=== PATIENT | female | born 1945 | race Caucasian/White ===

== ENCOUNTER 2019-09-24 16:23 | Outpatient (CLI) | payer MEDICARE, SELFPAY ==
--- NOTE | 2019-09-24 18:03 | ONC FU_ITS ---
Dr. Hutton Patient Follow-Up Note Patient: Beverley Sanchez Unit #: [id number]: 1945 Dicatated By: Giovanni Hutton M.D.Date of Visit:Sep 24, 2019 Onc Med Follow-up/Prog Note Chief Complaint: Gallbladder cancer. History of Present Illness: This is a 74 year-old woman with poorly differentiated adenocarcinoma of the gallbladder, initially stage IIIB (T2, N1, M0), but with subsequent progression to stage IV (M1). She was diagnosed with pathological T2 adenocarcinoma of the gallbladder as an incidental finding during laparoscopic cholecystectomy. On 03/11/2011 she underwent liver resection of segment 4 and 5 with portal lymphadenectomy. Surgical pathology revealed 08/15 involved lymph nodes. Thus, her disease was pathological stage IIIB (pT2, N1, M0). She received adjuvant gemcitabine for 3 cycles, requiring dose reductions. Her chemotherapy was complicated with MRSA cellulitis, sepsis, and grade 3 neutropenia requiring growth factor support. A Port-A-Cath was placed on 05/25/11, she then received a concurrent chemoradiation with infusional 5-FU, day 1-5 weekly during radiation, from 06/14/11 -07/21/11. Restaging imaging in October of 2011 showed no evidence of metastatic or recurrent disease. She had mild perigastric and proximal duodenal edema which was thought to be nonspecific and probably related to radiation. She declined additional gemcitabine. Screening colonoscopy on 05/04/[address] of the scans of the abdomen and pelvis on 05/24/2013 and on 06/20/2014 showed no evidence of recurrent gallbladder carcinoma or metastatic disease. In February 2015 she was reportedly diagnosed with well differentiated endometrial cancer, status post hysterectomy by Dr. Barnes. Those records have not been available. CT of the abdomen and pelvis on 01/09/15 showed new left lobe 5-6 mm pulmonary nodules. There was no evidence of metastatic disease in the abdomen or pelvis. Follow-up CT of the abdomen and pelvis on 06/20/2015 showed small marginal enlargement of the 2 left lower lobe pulmonary nodules up to 8.1 mm. She underwent lung wedge biopsy on 07/09/2015. The biopsy revealed well to moderately differentiated metastatic adenocarcinoma, consistent with gallbladder primary. IHC was positive for CD X2, CK 7, CK 20. She completed SBRT to the superior left lung on 09/05/2015, to the right lung on 09/15/2015, and 4 to the inferior left lung on 09/22/2015, each site to a total dose of [address] scans of the chest, abdomen, and pelvis on 10/20/2015 showed interval resection of the previous left lower lobe lateral segment nodule and unchanged lingular noncalcified 5 mm nodule. There was no evidence of disease progression in the chest, abdomen, or pelvis. Restaging CT scans of the chest, abdomen, and pelvis on 04/15/2016 showed postirradiation changes with evolving appearance since 01/20/2016, including the left upper lobe, lingula, and the right lung in the right middle lobe peribronchovascular distribution. There was no evidence of a neoplastic process in the chest. There was increasing diffuse fatty infiltration of the liver since 01/20/2016. There was no evidence of an hepatic metastatic lesion and no evidence of a neoplastic process in the remainder of the abdomen or pelvis. CT scans of the chest, abdomen, and pelvis on 07/20/2016 showed no evidence of recurrence/progression of disease. Her CT scans of the chest, abdomen, and pelvis on 07/06/2017 showed scattered opacities throughout both lungs which were felt to be probably post-therapeutic scarring and fibrosis. The appearance was stable. There was no evidence of new mass or nodules noted. There was no adenopathy noted in the thorax, and there was no evidence of other metastatic disease. Surveillance CT scans of the chest, abdomen, and pelvis on 01/16/2018 showed no evidence of recurrent or metastatic disease, but there was evidence of progression of the left hemidiaphragm elevation. At that point she appeared stable clinically, and she continued on observation/expectant management. For reasons unclear to me, she was then lost to follow-up. Her other medical illnesses include hypertension, asthma, GERD, and fibromyalgia. She is a nonsmoker. She has seen for follow-up today after she showed up with her requesting to have a visit. Her main complaint is that she has had increasing shortness of breath over the past 3 to 4 months. It bothers her when she lies down in bed, and she is frequently having to sleep sitting up because of it. She also is short of breath with activity. She has cough which is sometimes productive of white-yellow sputum. She has occasional pain in the substernal area. She has very limited activity tolerance. Her ECOG score is 2. Her appetite is still good. She thinks she has occasional fever at night. She has chills and sweating with it. She has no GI complaints. She has urinary frequency and nocturia. She has developed some swelling in the lower extremities. She says her knees hurt really bad. She also has pain in her ankles and in her shoulders and arms. She sometimes has headache, but not often. She has no focal neurologic symptoms. Medications: Atenolol 1 (50 mg) Tablet Oral daily, B Complex 1 Tablet Oral daily, Calcium + D 1 (600-200 mg - Units) Tablet Oral b.i.d., [employer] Fish Oil 1 (1200 mg) Capsule Oral b.i.d., Daily Multiple Vitamins 1 Tablet Oral daily, Fluticasone Furoate 2 (27.5 mcg/spray) Suspension Nasal daily, Klor-Con 1 (20 meq) Pack daily, Lasix 1 (40 mg) Tablet Oral daily, Magnesium Chloride ER (535 (64 Mg) mg) Tablet, controlled release Oral b.i.d., Myrbetriq 1 Tablet Tablet SR 24 HR Oral daily, Naproxen 1 (500 mg) Tablet Oral b.i.d. PRN, Omeprazole 1 (20 mg) Capsule Delayed Release Oral b.i.d., Percocet 1 (5-325 mg) Tablet Oral q 4 hours PRN, Savella 1 (12.5 mg) Tablet Oral b.i.d., SYMBACORT Aerosol Inhalation b.i.d. PRN Allergies: HYDROCODONE, Levaquin, and TRAMADOL. Review of Systems: Constitutional - Her energy is low. She has some activity restrictions related to her breathing. Her appetite is good and weight is down 10 pounds from last visit. She has felt feverish a few times along with sweating. ECOG score is 2, ENMT - She has sinus congestion/drainage. No mouth sores. No sore throat or difficulty swallowing, Hematologic/Lymphatic - No abnormal bruising or bleeding, Respiratory - She has been having shortness of breath for about 4 months. She reports this is worse when she lies down and with activity. She has a cough that occasional produces yellow phlegm. No pleuritic pain or hemoptysis, Cardiovascular - She has occasional substernal pain. This is also worsened by lying down. No palpitations, Gastrointestinal - No nausea or vomiting. No heartburn or acid reflux. No diarrhea or constipation. No blood in the stool or black stools, Genitourinary (F) - No dysuria or hematuria. She has urinary frequency both day and night. No urgency or incontinence, Musculoskeletal - She is having joint pain in her knees, ankles, and shoulders, Integumentary - She has some new skin lesions she is concerned about, Neurologic - She has occasional headaches. She has some dizziness when she lies down. No numbness or tingling. No other focal neurologic symptoms, Psychiatric - She has some anxiety. No depression. She is having difficulty sleeping. Vital Signs: Performed on Sep 24, 2019 16:34 Height - 65.00 in Weight - 182.4 lbs (LOW) BSA - 1.90 sq.m BMI - 30.35 (HIGH) Temperature - 97.6 F (LOW) Pulse - 80 /min Respiration - 19 /min BP - 135/70 mm(hg) O2 Sat - 92 % (LOW) Pain - 0 Her oxygen saturation dropped to 88% after walking just a short distance. She was symptomatic with it. Physical Examination: Constitutional - She appears short of breath with effort, Eyes - Sclerae nonicteric. Conjunctivae clear, ENMT - No lesions noted in the oral cavity, Hematologic/Lymphatic - No cervical or clavicular adenopathy, Respiratory - Lungs sound clear with diminished air movement bilaterally, Cardiovascular - Heart rhythm is regular. There is no murmur, gallop, or rub noted, Abdomen - Soft. Liver and spleen are not enlarged. There is no abdominal mass or ascites noted and there is no inguinal adenopathy, Extremities - Mild lower extremity edema, Integumentary - There are 2 lesions in the mid back which appear consistent with seborrheic keratoses. There is another lesion in the upper back which is a little more crusty and may be an actinic keratosis. There is an elongated, keratotic lesion protruding from the area just above the lateral aspect of the right eye, Neurologic - No focal neurologic deficits noted. Lab/Imaging: Test performed on Sep 03, 2019 05:00 Glucose 131 mg/dL BUN 21 mg/dL Creatinine 1.17 mg/dL Cr Clearance (Est) 59.88 mL/min Sodium 139 mmol/L Potassium 4.8 mmol/L Chloride 102 mmol/L CO2 27 mmol/L Calcium 9.6 mg/dL Protein, Total 6.9 g/dL Albumin 4.2 g/dL Globulin 2.7 g/dL Bilirubin, Total 0.5 mg/dL Alkaline Phosphatase 96 IU/L AST (SGOT) 14 IU/L ALT (SGPT) 10 IU/L WBC 9.3 10^9/L RBC 5.45 10^12/L HGB 14.9 g/dL HCT 47.3 % MCV 86.8 fl MCH 27.3 pg MCHC 31.5 g/dL RDW 14.2 % Platelet Count 283 10^9/L MPV 12.3 fL Neutrophils (Gran) 7180 10^9/L Lymphocytes 1163 10^9/L Monocytes 567 10^9/L Eosinophils 298 10^9/L Basophils 93 10^9/L Manual Lymphocytes 12.5 % Manual Monocytes 6.1 % Manual Eosinophils 3.2 % Manual Basophils 1.0 % Impression: 1. Patient with poorly differentiated adenocarcinoma of the gallbladder, stage IIIB at initial diagnosis in 2011, but with subsequent progression to stage IV (M1). 2. She underwent hepatic resection and lymphadenectomy on 03/11/2011, followed by 3 cycles of adjuvant gemcitabine chemotherapy, followed by consolidation chemoradiation with infusional 5-FU on days 1-5 during radiation. Her treatment was completed on 07/21/2011. 3. In interim she was diagnosed with endometrioid carcinoma of the uterus. She underwent resection sometime in February [address] Barnes. 4. Recurrent gallbladder cancer was found in July 2015, when routine CT revealed about 5 small pulmonary nodules with possible marginal enlargement up to 8.1 mm. Wedge lung biopsy on 07/09/2015 revealed metastatic adenocarcinoma consistent with gallbladder primary. 5. She was given SBRT to multiple remaining lung nodules, completed in September 2015. She experienced some decline in performance status following the radiation. She was then followed on observation/expectant management. As of her follow-up visit in January 2018 there was no evidence of recurrence/progression of the gallbladder cancer. She was then lost to follow-up. She returns now with a 3 to 4-month history of increasing shortness of breath. The cause is uncertain, but she does have a component of orthopnea and she has developed some mild lower extremity edema, so that underlying cardiac pathology is possible. Alternatively, it may just be due to progression of the underlying malignancy. She does show a significant decline in her oxygen saturation with activity. Plan: She will be scheduled for restaging CT scans of the chest, abdomen, and pelvis. She will have additional laboratory studies at that time to include CBC, comprehensive metabolic profile, TSH level, CEA and CA-19-9 levels, and a pro B-[employer] level. She will have further evaluation as indicated. In the meantime, I will see if I get her set up for home oxygen, as she is significantly hypoxic with activity. Signed By: Giovanni Hutton M.D. <<Signature on File>>
== END 2019-09-24 16:24 | disposition home or self-care (01) ==
LOC: ONCMED 16:28
PROVIDERS: Visit Provider Internal Medicine Medical Oncology
DX: C54.1 Malignant neoplasm of endometrium (principal); C78.02 Secondary malignant neoplasm of left lung; Z85.09 Personal history of malignant neoplasm of other digestive organs; R06.02 Shortness of breath; R60.0 Localized edema; R09.02 Hypoxemia; Z90.710 Acquired absence of both cervix and uterus; Z92.3 Personal history of irradiation; Z90.49 Acquired absence of other specified parts of digestive tract; Z92.21 Personal history of antineoplastic chemotherapy
CPT/HCPCS: 99214

== ENCOUNTER → 2020-04-24 09:26 | Outpatient (BNVA) | payer OTHER, MEDICARE, SELFPAY | PROVIDERS: PCP Family Medicine; Visit Provider Family Medicine | DX: I10 Essential (primary) hypertension (principal) | CPT/HCPCS: 80053 ==